=== PATIENT | female | born 1975 | race African-American/Black ===

== ENCOUNTER 2017-01-31 16:49 | Emergency (ER) | payer OTHER ==
[~2017-01-31 16:49] MED LIST: AZITHROMYCIN1 GM PO; DOXYCYCLINE150 MG PO; EXCEDRIN MIGRAI1 TA1 PO; FLAGYL PO; FLEXERIL PO; FLEXERIL10 MG PO; K-DUR20 ME2 PO; LORTAB 10-5001 EACH PO; ORUDIS75 M1 PO; PHENERGAN25 MG PO; PREDNISONE10 MG PO; PREDNISONE10 MG/DOSE PO; VICODIN 5/1 TAB 5/50 PO; VISTARIL PO; VOLTAREN75 MG PO
== END 2017-01-31 17:49 | disposition home or self-care (01) ==
LOC: CFTX 16:49
DX: M54.5 Low back pain (principal); G43.909 Migraine, unspecified, not intractable, without status migrainosus; F17.210 Nicotine dependence, cigarettes, uncomplicated
CPT/HCPCS: 84703; 96372; 99283; J1885